=== PATIENT | female | born 1970 | race Caucasian/White ===

== ENCOUNTER 2020-10-29 04:59 | Day surgery (SDC) | payer OTHER ==
[2020-10-25 15:13] VITALS: BMI 26.9
[2020-10-29] MEDS ORDERED: ONDANSETRON 4 MG/2 ML VIAL IVPUSH PRN (11:26)
[2020-10-29] MEDS ORDERED: LACTATED RINGERS SOLUTION 1,000 ML IV SCH (11:30)
[2020-10-29] MEDS ORDERED: BUPIVACAINE HCL/PF 0.5% (5MG/ML) 10 ML VIAL ONE (11:32)
[2020-10-29] MEDS ORDERED: ROCURONIUM BROMIDE 50 MG/5 ML SYRINGE ONE (11:39)
[2020-10-29] MEDS ORDERED: fentaNYL CITRATE 250 MCG/5 ML VIAL ONE (11:39)
[2020-10-29] MEDS ORDERED: CLINDAMYCIN 900 MG PREMIX BAG IVPB ONE (12:00)
[2020-10-29] MEDS ORDERED: NEOSTIGMINE METHYLSULFATE 0.5 MG/ML - 10 ML MDV ONE (12:56)
[2020-10-29] MEDS ORDERED: BUPIVACAINE HCL/PF 0.5% (5MG/ML) 10 ML VIAL IJ ONE (12:57)
[2020-10-29] MEDS ORDERED: oxyCODONE HCL 5 MG TABLET PO PRN ×2 (14:00)
[2020-10-29] MEDS ORDERED: oxyCODONE HCL 5 MG TABLET ONE (15:44)
[2020-10-29] MEDS ORDERED: IBUPROFEN 600 MG TABLET (FP) PO ONE (16:47)
[2020-10-29 19:02] VITALS: BP 140/68; PULSE 88; TEMP 98.4
== END 2020-10-29 17:25 | disposition home or self-care (01) ==
LOC: JASU-SURG 04:59
PROVIDERS: ATTEND Obstetrics & Gynecology
PROC: 0UT64ZZ Resection of Left Fallopian Tube, Percutaneous Endoscopic Approach (ICD-10-PCS; 2020-10-29)
PROC: 0UT14ZZ Resection of Left Ovary, Percutaneous Endoscopic Approach (ICD-10-PCS; principal; 2020-10-29 10:00)
DX: N80.2 Endometriosis of fallopian tube (principal); N80.1 Endometriosis of ovary
CPT/HCPCS: 81025; 86850; 86900; 86901; 88302-TC; 88305-TC; 94760